=== PATIENT | male | born 1935 ===

== ENCOUNTER 2018-06-12 11:00 | Emergency (ER) | payer OTHER ==
[~2018-06-12] VITALS: Ht 160 cm; Wt 65.8 kg
[2018-06-12] MEDS ORDERED: LEVAQUIN500 MG PO (11:17)
== END 2018-06-12 16:24 | disposition home or self-care (01) ==
LOC: ER 11:00
DX: R55 Syncope and collapse (principal)

== ENCOUNTER 2018-07-10 11:26 | Emergency (ER) | payer OTHER ==
[~2018-07-10] VITALS: Ht 167.6 cm; Wt 63.5 kg
[~2018-07-10 11:26] MED LIST: LEVAQUIN500 MG PO
[2018-07-10] MEDS ORDERED: LIPITOR40 MG PO (11:33)
[2018-07-10] MEDS ORDERED: PROTONIX20 MG PO (11:33)
[2018-07-11] MEDS ORDERED: PEPCID AC20 MG PO (12:15)
[2018-07-11] MEDS ORDERED: INTESTINEX680 M1 PO (12:15)
[2018-07-11] MEDS ORDERED: LEVAQUIN500 MG PO (12:15)
[2018-07-11] MEDS ORDERED: ZOFRAN ODT4 MG SL (12:15)
== END 2018-07-11 12:46 | disposition home or self-care (01) ==
LOC: ER 11:26
DX: N39.0 Urinary tract infection, site not specified (principal); K29.70 Gastritis, unspecified, without bleeding; E86.0 Dehydration; R55 Syncope and collapse; R50.9 Fever, unspecified

== ENCOUNTER 2018-08-29 13:43 | Emergency (ER) | payer OTHER ==
[~2018-08-29] VITALS: Ht 317.5 cm; Wt 61.2 kg
[~2018-08-29 13:43] MED LIST changes: +INTESTINEX680 M1 PO; +LIPITOR40 MG PO; +PEPCID AC20 MG PO; +PROTONIX20 MG PO; +ZOFRAN ODT4 MG SL
== END 2018-08-29 19:50 | disposition home or self-care (01) ==
LOC: ER 13:43
DX: N39.0 Urinary tract infection, site not specified (principal); B96.29 Other Escherichia coli [E. coli] as the cause of diseases classified elsewhere

== ENCOUNTER 2018-11-17 13:35 | Emergency (ER) | payer OTHER ==
[~2018-11-17] VITALS: Ht 167.6 cm; Wt 61.2 kg
[2018-11-17] MEDS ORDERED: PROTONIX40 MG PO (14:07)
[2018-11-17] MEDS ORDERED: PLAVIX75 MG PO (14:07)
[2018-11-17] MEDS ORDERED: PEPCID40 MG PO (14:07)
== END 2018-11-17 18:10 | disposition home or self-care (01) ==
LOC: ER 13:35
DX: R55 Syncope and collapse (principal); N39.0 Urinary tract infection, site not specified; D49.7 Neoplasm of unspecified behavior of endocrine glands and other parts of nervous system; I69.398 Other sequelae of cerebral infarction; I10 Essential (primary) hypertension

== ENCOUNTER 2018-12-03 12:20 | Inpatient (IN) | payer OTHER ==
[~2018-12-03 12:20] MED LIST changes: +PEPCID40 MG PO; +PLAVIX75 MG PO; +PROTONIX40 MG PO
== END 2018-12-10 16:18 | disposition home or self-care (01) | DRG 690 ==
LOC: MEDJ 12:20 → MEDI 12:20
PROVIDERS: ADMIT Internal Medicine Cardiovascular Disease
PROC: BW4GZZZ Ultrasonography of Pelvic Region (ICD-10-PCS; principal; 2018-12-04)
PROC: BT43ZZZ Ultrasonography of Bilateral Kidneys (ICD-10-PCS; 2018-12-04)
DX: N39.0 Urinary tract infection, site not specified (principal); E86.0 Dehydration; B96.29 Other Escherichia coli [E. coli] as the cause of diseases classified elsewhere

== ENCOUNTER 2019-03-24 10:45 | Emergency (ER) | payer OTHER ==
[~2019-03-24] VITALS: Ht 167.6 cm; Wt 68.0 kg
[2019-03-24] MEDS ORDERED: ZOLOFT25 MG (11:04)
== END 2019-03-24 15:28 | disposition home or self-care (01) ==
LOC: ER 10:45
DX: R53.1 Weakness (principal)

== ENCOUNTER 2019-03-26 10:33 | Emergency (ER) | payer OTHER ==
[~2019-03-26] VITALS: Ht 167.6 cm; Wt 63.5 kg
[~2019-03-26 10:33] MED LIST changes: +ZOLOFT25 MG
== END 2019-03-26 19:30 | disposition home or self-care (01) ==
LOC: ER 10:33 → CPU-OBS 10:56 → ER 10:56
DX: R07.89 Other chest pain (principal); R55 Syncope and collapse; R53.1 Weakness

== ENCOUNTER 2019-07-24 10:42 | Emergency (ER) | payer OTHER ==
[~2019-07-24] VITALS: Ht 167.6 cm; Wt 60.3 kg
== END 2019-07-24 17:13 | disposition home or self-care (01) ==
LOC: ER 10:42
DX: G31.89 Other specified degenerative diseases of nervous system (principal); R55 Syncope and collapse